=== PATIENT | female | born 1940 | race Caucasian/White ===

== ENCOUNTER 2017-09-27 07:05 | Day surgery (SDC) | payer MEDICARE ==
[~2017-09-27] VITALS: Ht 160 cm; Wt 58.3 kg
[~2017-09-27 07:05] MED LIST: ASPI1TAB69 PO; BYST10TA2 PO; PRIN20TA2 PO
[2017-09-27] MEDS ORDERED: IOHEXOL 350 MG/ML 50 ML BTL (for Cath Lab) OTHER ONE (07:06)
[2017-09-27] MEDS ORDERED: VITA1000 PO (07:37)
[2017-09-27] MEDS ORDERED: ATOR20TA15 PO (07:37)
[2017-09-27] MEDS ORDERED: FISH100020 (07:37)
[2017-09-27] MEDS ORDERED: VITATAB11 (07:37)
[2017-09-27] MEDS ORDERED: TEMA30CA PO (07:37)
[2017-09-27] MEDS ORDERED: ASPI81TA23 PO (07:37)
[2017-09-27] MEDS ORDERED: LORA1TAB12 PO (07:37)
[2017-09-27] MEDS ORDERED: AMLO5TAB2 PO (07:37)
[2017-09-27 07:38] VITALS: BP 158/87; PULSE 56; RESP 16; TEMP 98.6; O2SAT 98
[2017-09-27] MEDS ORDERED: SODIUM BICARBONATE 100 MEQ in D5W 1000 ML IV SCH (08:00)
[2017-09-27 08:28] LABS: CREATININE 0.73 MG/DL (0.50-1.00)
--- NOTE | 2017-09-27 09:04 | HHI.HP ---
History of Present Illness Chief Complaint: R LE claudication History of Present Illness 77 yo female with h/o LE stents and L LE bypass with R LE claudication that is lifestyle limiting. she is a nonsmoker and has tried conservative management. Past/Family/Social History Past Medical History PAD XOL HTN anxiety Past Surgical History L LE bypass L CEA B PAD Social History nonsmoker, lives with Family History NC Home Medications Reported Medications B-Complex Vitamins (Vitamin B Complex) 1 Tab 09/27/17 Cholecalciferol (Vitamin D-1000) 1,000 Unit Tab, 1000 UNITS PO DAILY for Nutritional Supplement, #1 BOTTLE 0 Refills 09/27/17 [place]-3 Fatty Acids (Fish Oil 1000 mg) 300 Mg-1,000 Mg Cap 09/27/17 Lorazepam (Lorazepam) 1 Mg Tab, 1 MG PO HS, TAB 0 Refills 09/27/17 Temazepam (Temazepam) 30 Mg Cap, 30 MG PO HS Y for INSOMNIA, #30 CAP 0 Refills 09/27/[address] (Aspirin EC) 81 Mg Tabdr, 81 MG PO DAILY, TAB 0 Refills 09/27/17 Atorvastatin (Atorvastatin) 20 Mg Tab, 20 MG PO HS for Cholesterol Management, # 30 TAB 0 Refills 09/27/17 Amlodipine (Amlodipine) 5 Mg Tab, 5 MG PO DAILY for Blood Pressure Management, # 30 TAB 0 Refills 09/27/17 Discontinued Reported Medications Lisinopril (Prinivil) 20 Mg Tab, 40 MG PO DAILY for Blood Pressure Management, # 60 TAB 0 Refills 04/06/16 Nebivolol (Bystolic) 10 Mg Tab, 10 MG PO DAILY for Blood Pressure Management, # 30 TAB 0 Refills 04/06/16 Coded Allergies: No Known Allergies (Unverified Allergy, Unknown, 09/27/17) Review of Systems Constitutional: DENIES: Diaphoretic episodes, Fatigue, Fever, Weight gain, Weight loss, Chills, Dizziness, Change in appetite, Night Sweats Cardiovascular: COMPLAINS OF: Claudication Physical Exam Vitals/I&O Date Time Temp Pulse Resp B/P (MAP) Pulse Ox O2 Delivery O2 Flow Rate FiO2 09/27/17 07:38 98.6 56 16 158/87 (110) 98 Neuro: alert, slightly anxious HEENT: NC/AT Neck: no JVD, trachea midline Heart: reg rate Lungs: clear Vascular: palpable femoral pulses Extremities: no tissue loss LLE incisions healed Laboratory Tests Test 09/27/17 07:30 Creatinine 0.73 Estimat Glomerular Filtration Rate 78 pending Caprini VTE Risk Assessment Caprini VTE Risk Assessment: No/Low Risk (score <= 1) Caprini Risk Assessment Model Point Value = 1 Point Value = 2 Point Value = 3 Point Value = 5 Age 41-60 Minor surgery BMI > 25 kg/m2 Swollen legs Varicose veins or History of unexplained or recurrent spontaneous Oral contraceptives or hormone replacement Sepsis (< 1 month) Serious lung disease, including pneumonia (< 1 month) Abnormal pulmonary function Acute myocardial infarction Congestive heart failure (< 1 month) History of inflammatory bowel disease Medical patient at bed rest Age 61-74 Arthroscopic surgery Major open surgery (> 45 min) Laparoscopic surgery (> 45 min) Malignancy Confined to bed (> 72 hours) Immobilizing plaster cast Central venous access Age >= 75 History of VTE Family history of VTE Factor V Leiden Prothrombin [id number] Lupus anticoagulant Anticardiolipin antibodies Elevated serum homocysteine Heparin-induced thrombocytopenia Other congenital or acquired thrombophilia Stroke (< 1 month) Elective arthroplasty Hip, pelvis, or leg fracture Acute spinal cord injury (< 1 month) Prophylaxis Regimen Total Risk Factor Score Risk Level Prophylaxis Regimen 0-1 Low Early ambulation 2 Moderate Order ONE of the following: *Sequential Compression Device (SCD) *Heparin 5000 units SQ BID 3-4 Higher Order ONE of the following medications: *Heparin 5000 units SQ TID *Enoxaparin/Lovenox 40 mg SQ daily (WT < 150 kg, CrCl > 30 mL/min) *Enoxaparin/Lovenox 30 mg SQ daily (WT < 150 kg, CrCl > 10-29 mL/min) *Enoxaparin/Lovenox 30 mg SQ BID (WT < 150 kg, CrCl > 30 mL/min) AND/OR *Sequential Compression Device (SCD) 5 or more Highest Order ONE of the following medications: *Heparin 5000 units SQ TID (Preferred with Epidurals) *Enoxaparin/Lovenox 40 mg SQ daily (WT < 150 kg, CrCl > 30 mL/min) *Enoxaparin/Lovenox 30 mg SQ daily (WT < 150 kg, CrCl > 10-29 mL/min) *Enoxaparin/Lovenox 30 mg SQ BID (WT < 150 kg, CrCl > 30 mL/min) AND *Sequential Compression Device (SCD) Assessment and Plan Plan R LE angiogram Discharge Planning DOCU and hope later today Beny Holt MD September 27, 2017 09:04
[2017-09-27] MEDS ORDERED: HEPARIN-NS/PF FLUSH BAG 1,000 ML IV FLUSH ONE (09:08)
[2017-09-27] MEDS ORDERED: HEPARIN SODIUM - IV 10,000 UNITS/10 ML VIAL ONE (09:08)
[2017-09-27] MEDS ORDERED: MIDAZOLAM HCL 2 MG/2 ML VIAL ONE ×2 (09:08→09:27)
--- NOTE | 2017-09-27 09:38 | HHI.PR ---
cc: Beny Holt MD Immediate Post Op Note Procedure Date: September 27, 2017 Pre Op Diagnosis: R LE claudication, PAD Post Op Diagnosis: R LE claudication, PAD Surgeon: Beny Holt Advertising Statistical Clerk(s): none Procedure: 1. U/S guided access to L TRAIN CLERK 2. Aortogram w/ R LE angiogram Findings: 1. B BERNY stents extending into aorta - patent but prohibiting contralateral femoral access-based endovascular intervention 2. R TRAIN CLERK/PFA/SFA proximal stenosis 3. R distal SFA occlusion Additional Information: 4F sheath removed from LEFT groin in lab asst Complications: none Specimen(s) removed: none Estimated blood loss: 5mL Anesthesia: MAC Drains: None Patient to: Other (DOCU) Patient Condition: Good Date/Time of Procedure: SEE SURGICAL CARE RECORD Beny Holt MD September 27, 2017 09:38
--- NOTE | 2017-09-27 09:48 | CATHPROC ---
[facility] HIS Report Study Information Study Number Admission Scheduled Start Study Start [id number] Sep 27 2017 7:05AM 09/27/2017 Sep 27 2017 8:59AM [place] Service Cath Endovascular Study Admit Source Facility Department [facility] - Director Data Architecture Physician and Clinical Staff Initial MD Holt, Beny Mill Tender Jeannie Souza,RN Recorder Margy Morrow,RT(R) (BS) Scrub Vince VeeRT(R) Procedures Performed Procedure Location (Site) Vessel Name Abdominal Angiogram Abd Aorta (A3) Aorta Abdominal Angiogram Iliac R. Com. (R4) Illiac Art. Abdominal Angiogram Popliteal R (R10) Popliteal Abdominal Angiogram SFA (right) Femoral Art Wire insertion Fem Art (left) Femoral Art Equipment Time Reducing Salon Attendant Description Size Mfg Part Number Used/Scraped [id number] 09:21 ANGIO-DYNAMICS OMNI FLUSH 65CM CATHETER FR 4 Used *[id number] INTRODUCER SET, 09:11 [employer] FR 5 [id number] *[id number] Used MICROPUNCTURE STIFF [id number] 09:11 TwoF PACK, CCL CUSTOM * Used *[id number] TUBING, PRESSURE INJECTION [id number] 09:11 NAMIC PACER 72" Used 72" *[id number] 09:11 [employer] OMNIPAQUE, 300 MG, 150ML 150ML [id number] Used 09:11 [employer] OMNIPAQUE, 300 MG, 50ML 50ML [id number] Used [id number] 09:11 [employer],WARM AIR CCL * Used *[id number] 09:11 TERUMO MEDICAL SHEATH, FR4 TERUMO (10CM) FR 4 Used *[id number] WIRE, ANGLED GLIDE .035 [id number] 09:11 TERUMO MEDICAL/LOVELY 260CM Used 260CM *[id number] History: Current Medications Medication Dosage/Unit Route Frequency Last Date/Time Taken Statins (any) NORVASC ASA History: Allergies Allergy Reaction No Known Allergies History: Risk Factors Hypertension Yes Peripheral Artery Disease Labs Creatinine (mg/dl) 0.50-1.30 0.7 CPK-MB (ng/ML) 0.50-3.60 Not Drawn Medication Medication Total Dose (Bolus/Oral) Medication Total Dosage/Unit 1% XYLOCAINE 20 mL FENTANYL 75 mcg OXYGEN 2 l/min VERSED 3 mg Medications (Bolus/Oral) Medication Time Given Dosage/Unit Administered By Reason VERSED 09/27/2017 9:15:22 AM 2 mg Ana Laura Souzanifer 2 mg VERSED given in lab by Jeannie Souza RN in Right Antecubital via Peripheral IV. FENTANYL 09/27/2017 9:16:33 AM 50 mcg Jeannie Souza 50 mcg FENTANYL given in lab by Jeannie Souza RN in Right Antecubital via Peripheral IV. 1% XYLOCAINE 09/27/2017 9:18:24 AM 20 mL Beny Holt 20 mL 1% XYLOCAINE given in lab by Beny Holt in Left Groin via Subcutaneous. OXYGEN 09/27/2017 9:20:42 AM 2 l/min Jeannie Souza 2 l/min OXYGEN given in lab by Jeannie Souza RN via Nasal. VERSED 09/27/2017 9:28:28 AM 1 mg Jocelyn Souzafer 1 mg VERSED given in lab by Jeannie Souza RN in Right Antecubital via Peripheral IV. FENTANYL 09/27/2017 9:29:37 AM 25 mcg Jeannie Souza 25 mcg FENTANYL given in lab by Jeannie Souza RN in Right Antecubital via Peripheral IV. Medication (Drip) Medication Time Given Dosage/Unit Concentration/Unit Diluent (ml) Solution SODIUM BICARBONATE 09/27/2017 8:59:19 AM 125 mL/hr 150 1000 NaCl .9 DRIP Patient arrived on 125 mL/hr SODIUM BICARBONATE DRIP in Right Antecubital via Peripheral IV. Pump/Dri p Flow = 0 ml/hr using NaCl .9 with a concentration of 150 in 1000 ml. Initial Case Assessment Cardiovascular HR Rhythm NIBP Chest Pain 92 reg 179/79 0 Edema Present Skin color Skin None Normal Warm Dry Circulatory - Left Pulses Circulatory - Lower Extremities Color Lower Right Color Lower Left Normal Normal Neurological State Oriented to time-place- Alert Moves all extremities person Respiration - General Respiration Rate SpO2 (%) (B/min) 17 98 Chronological Log Time Study Chronological Log 8:59:03 Patient arrived via Bed. 8:59:04 Patient Name, D.O.B, / Armband Verified By R.N. 8:59:04 Consent signed by the physician and the patient and verified by the Director Data Architecture staff. 8:59:05 Pre-op and post- op instructions given; patient acknowledges understanding of instructions. 8:59:05 Verbal Stimulation=2 Physical Stimulation=2 Airway=2 Respiration=2 TOTAL=8. (0=absent, 1=kilpatrick ited, 2=present) 8:59:08 Presedation assessment performed by Director Data Architecture RN. 8:59:10 Patient has been NPO for More than 6Hrs. 8:59:10 Skin Breakdown none per pt 8:59:11 Patient Warmer Placed on the Table. 8:59:14 Veronica Prominences Protected 8:59:14 A # 20 IV was noted in the Antecubital (right). Grade = 0 8:59:15 History and physical on the chart or being dictated. Assessment: Initial Case, HR=92 BPM, Rhythm=reg, FCWV=665/79 mmhg, Chest Pain=0, Edema=None, Col or=Normal, Skin = Warm, Dry Left Pulses: Femoral=3 8:59:16 Lower Right Extremities: Color=Normal Lower Left Extremities: Color=Normal Neurological: State=Alert, Ox3, [place] Respiration: Resp=17 B/min, SpO2=98 % Patient arrived on 125 mL/hr SODIUM BICARBONATE DRIP in Right Antecubital via Peripheral IV. Pum p/Drip Flow = 0 8:59:19 ml/hr using NaCl .9 with a concentration of 150 in 1000 ml. Time Out. Correct patient, correct procedure, correct physician, power injector loaded, or not l oaded with contrast with 9:05:44 surgical team present. Time Out Concurred by MD and individual staff in procedure. 9:10:56 Bilateral groins prepped with 2% chlorhexidine, and draped after a 3 minute waiting time. Vitals capture started with the following parameters, Patient=Adult, Interval=5 min, Initial Pre pvqwd=225 mmHg, 9:13:21 Deflation Rate=5 mmHg, Cuff placed on Right Ankle 9:15:05 Vitals capture stopped. Vitals capture started with the following parameters, Patient=Adult, Interval=5 min, Initial Pre mxleg=488 mmHg, 9:15:18 Deflation Rate=5 mmHg, Cuff placed on Right Ankle 9:15:22 2 mg VERSED given in lab by Jeannie Souza RN in Right Antecubital via Peripheral IV. 9:15:58 HR=90 bpm, TFCX=086/79 mmhg, SpO2=97.0 %, Resp=16 B/min, Pain=0, Carlene=8, Sorto=2 9:16:33 50 mcg FENTANYL given in lab by Jeannie Souza RN in Right Antecubital via Peripheral IV. 9:17:27 Case Start 9:18:24 20 mL 1% XYLOCAINE given in lab by Beny Holt in Left Groin via Subcutaneous. 9:19:10 Reference ECG taken 9:20:42 2 l/min OXYGEN given in lab by Jeannie Souza RN via Nasal. 9:21:05 HR=73 bpm, CIJM=660/65 mmhg, SpO2=98.0 %, Resp=16 B/min, Pain=0, Carlene=8, Sorto=2 9:25:05 Access site was Left Femoral Artery using ultrasound A INTRODUCER SET, MICROPUNCTURE STIFF FR 5 was advanced into the Fem Art (left) using the Percut aneous 9:25:16 technique. A SHEATH, FR4 TERUMO (10CM) FR 4 was exchanged in the Fem Art (left). This was necessary in orde r to 9:25:31 accomodate a larger catheter. A OMNI FLUSH 65CM CATHETER FR 4 was advanced over a wire. OMNIPAQUE, 300 MG, 150ML 150ML was use d for 9:26:01 injections. 9:26:31 HR=83 bpm, WWMX=631/60 mmhg, IeI7=827.0 %, Resp=12 B/min, Pain=0, Carlene=8, Sorto=2 9:28:28 1 mg VERSED given in lab by Jeannie Souza RN in Right Antecubital via Peripheral IV. 9::58 Through a OMNI FLUSH 65CM CATHETER FR 4, The Abdominal Aorta was injected with 10 cc's of co ntrast. 9:29:37 25 mcg FENTANYL given in lab by Jeannie Souza RN in Right Antecubital via Peripheral IV. 9:29:58 Through a OMNI FLUSH 65CM CATHETER FR 4, The Abdominal Aorta was injected with 10 cc's of contrast. 9:30:39 Through a OMNI FLUSH 65CM CATHETER FR 4, The Abdominal Aorta was injected with 10 cc's of contrast. 9:30:48 Through a OMNI FLUSH 65CM CATHETER FR 4, The Abdominal Aorta was injected with 10 cc's of contrast. 9:30:59 HR=79 bpm, SBQQ=357/64 mmhg, SpO2=99.0 %, Resp=9 B/min, Pain=0, Carlene=8, Sorto=2 9:31:28 A WIRE, ANGLED GLIDE .035 260CM 260CM was inserted via Fem Art (left). 9:31:37 Catheter was removed 9:31:38 Wire removed 9:31:55 Case End 9:32:31 Catheter(s) removed without difficulty 9:33:02 No case complications noted. 9:33:06 Bedside Report will be given. 9:33:14 Sheath removed; pressure applied to access site. 9:34:39 DOCU called. Spoke to Jaclyn. 9:35:58 HR=81 bpm, JNOC=079/58 mmhg, SpO2=98.0 %, Resp=24 B/min, Pain=0, Carlene=8, Sorto=2 9:41:36 HR=77 bpm, AYWF=098/52 mmhg, SpO2=99.0 %, Resp=17 B/min, Pain=0, Carlene=8, Sorto=2 9:46:31 HR=79 bpm, CCED=606/63 mmhg, SpO2=99.0 %, Resp=21 B/min, Pain=0, Carlene=8, Sorto=2 9:47:30 Sterile dressing applied to site 9:47:47 Vitals capture stopped. 9:50:36 [facility] - Contrast Media Used In Study Contrast Total Opened (mL) Total Used (mL) Total Wasted (mL) Omnipaque 20 20 0 End Study - Maximum Contrast Load Max Contrast Load (mL) 416.6 End Study - Radiation Exposure Fluoro Time (minutes) 1.9 End Study - Sheaths Sheaths Pulled By Sheath Hold Time (min) Vince Vee End Study - Patient Disposition Complications Transferred To Interventional Outcome No Director Data Architecture Holding No attempt made
--- NOTE | 2017-09-27 10:03 | MP ---
cc: Beny Holt MD DATE OF OPERATION: 09/27/2017 PREOPERATIVE DIAGNOSIS: Right lower extremity claudication, peripheral arterial occlusive disease. POSTOPERATIVE DIAGNOSIS: Right lower extremity claudication, peripheral arterial occlusive disease. PROCEDURE PERFORMED: 1. Ultrasound-guided access to left common femoral artery. 2. Aortogram with right lower extremity angiogram. ATTENDING SURGEON: Beny Holt MD ANESTHESIA: Local with sedation. INDICATIONS FOR PROCEDURE: Ms. Hardin is a 77-year-old lady with right lower extremity claudication that is lifestyle limiting. She has tried conservative therapy and failed. She was taken to the operating room for angiographic evaluation and potential treatment. There is no prior catheter-based imaging available for my review. DESCRIPTION OF PROCEDURE: Informed consent was obtained from the patient. She was taken to the operating room and placed supine on the operating table. An appropriate timeout was taken to ensure the patient's identity, the operative site and planned procedure. The administration of antibiotics was not necessary as this is a clean procedure without planned implantation of any foreign object. Everyone in the room agreed with timeout and we proceeded. Her bilateral groins were prepped and draped and left groin was anesthetized with 1% lidocaine. Using ultrasonographic guidance, a 21-gauge micropuncture needle was used to access left common femoral artery. This was exchanged using Seldinger technique through micropuncture sheath, which was 0.035 Glidewire was introduced. Micropuncture sheath was exchanged for a 4-Polish sheath. A VCF catheter was placed over the wire and through the sheath and aortogram, pelvic arteriogram was obtained. Right lower extremity angiogram was obtained with the catheter in the aorta. The wire was reintroduced. A wire catheter and sheath were removed and manual pressure held for hemostasis. There were no complications. I was present, scrubbed, and performed the entire procedure. INTERPRETATION OF IMAGES: The patient had patent infrarenal aorta. There are common iliac artery stents that are crossed, widely patent but extending well into the aorta. The right distal common iliac artery, hypogastric artery and external iliac artery were widely patent. The common femoral artery was patent. The proximal profunda and SFA have high grade calcific stenoses. The SFA is patent beyond this, and there is a focal occlusion of the distal SFA. MD NAS Mcdaniel/ROBIN , 09:41 AM , 10:01 AM
== END 2017-09-27 13:35 | disposition home or self-care (01) ==
LOC: HCAT 07:05 → HDIC 07:06 → HCAT 13:35
PROVIDERS: ATTEND Surgery
DX: I73.9 Peripheral vascular disease, unspecified (principal); I10 Essential (primary) hypertension; F41.9 Anxiety disorder, unspecified
CPT/HCPCS: 36246; 75625; 75710; 82565; 99152; 99153; C1769; C1893; J1644; J2250; J3010; J7070; Q9967